=== PATIENT | female | born 1930 | race Caucasian/White ===

== ENCOUNTER 2017-08-04 20:40 | Inpatient (IN) ==
[2017-08-04] MEDS ORDERED: Acetaminophen 325 MG TABLET PO ONE (21:34)
--- NOTE | 2017-08-04 21:41 | Emergency Department Note ---
Disposition Clinical Impression: Supratherapeutic INR, Hyperkalemia Fall Qualifiers: Encounter type: initial encounter Qualified Code(s): W19.XXXA - Unspecified fall, initial encounter Acute renal failure Qualifiers: Acute renal failure type: unspecified Qualified Code(s): N17.9 - Acute kidney failure, unspecified UTI (urinary tract infection) Qualifiers: Urinary tract infection type: site unspecified Hematuria presence: without hematuria Qualified Code(s): N39.0 - Urinary tract infection, site not specified Disposition: Admitted As Inpatient Condition: Good Time of Disposition: 23:14 Fall HPI - General Chief Complaint: ED Fall Stated Complaint: "Fell/Injured R Leg/On Blood Thinners" Time Seen by Provider: 08/04/17 21:05 Source: patient, family Limitations: altered mental status, age Nursing Notes Reviewed: Yes Vital Signs Reviewed: Yes - History of Present Illness HPI Narrative: This is an 86 year-old female with history of HTN, AF on Coumadin, and frequent UTIs. She presents after a fall. Patient says that she just slipped out of a chair yesterday, landing on her left side. Family isn't sure about the accuracy of her account, however. Patient denies any pain. Family notes that she has complained of pain to the left ankle and foot, as well as pain in her tailbone with sitting. They says that patient has been confused for the past few days, at times imagining that there were people in her apartment that weren't really there. They say that patient hasn't eaten or taken her medications today. Pt Subjective Complaint: fall Onset (ago): unknown (yesterday?) Fall From: chair Fall Witnessed: no Place Fall Occurred: home Loss of Consciousness: none Prolonged Down Time?: no Symptoms Prior to Fall: none Context: tripped/slipped Location of injury: back (tailbone) Location of injury - extremities: Right: ankle, foot Severity: moderate Quality: unable to describe Associated symptoms (after fall): Reports: unable to walk (?). Denies: headache , neck pain, numbness, weakness, chest pain, shortness of breath, abdominal pain - Related Data Home Medications Medication Instructions Recorded Confirmed Digoxin [Lanoxin] 0.125 mg PO DAILY 08/05/17 08/05/17 Ergocalciferol (VITAMIN D2) 50,000 unit PO MOFR 08/05/17 08/05/17 [Drisdol] Lisinopril [Zestril] 10 mg PO DAILY 08/05/17 08/05/17 Metoprolol Succinate [Toprol Xl] 100 mg PO DAILY 08/05/17 08/05/17 Warfarin Sodium [Warfarin Sodium] 2.5 mg PO MOTUTHFRSA 08/05/17 08/05/17 Warfarin [Coumadin] 5 mg PO SUWE 08/05/17 08/05/17 Allergies Allergy/AdvReac Type Severity Reaction Status Date / Time No Known Allergies Allergy Verified 08/05/17 08:57 Limitations: ROS unobtainable due to patients medical condition Constitutional: Denies: fever Respiratory: Denies: dyspnea Gastrointestinal: Denies: abdominal pain Musculoskeletal: Reports: arthralgia (right ankle, foot). Denies: back pain, neck pain Neurological: Denies: headache, weakness, numbness Fall PMH - Past Medical History Medical history: Reports: atrial fibrillation, hypertension, other Psychiatric history: Reports: no psych history - Social History Smoking Status: Never smoker Alcohol use: Reports: none Drug use: Reports: none Physical Exam - General Limitations: no limitations General appearance: alert, cachectic - Head Head exam: atraumatic, normocephalic - Eye Eye exam: Present: normal appearance - Neck Neck exam: Present: normal inspection. Absent: tenderness - Respiratory Respiratory exam: Present: normal lung sounds bilaterally. Absent: respiratory distress - Cardiovascular Cardiovascular exam: Present: regular rate, irregular rhythm - Abdominal Exam Abdominal exam: Present: soft, Non-Tender. Absent: distention, guarding, rebound, rigidity - Extremities Exam Extremities exam: Present: other (swelling of right ankle, maximal over lateral malleolus; no pain on ROM of knees, hips, or upper extremities) - Back Exam Back exam: Present: normal inspection. Absent: tenderness - Neurological Exam Neurological exam: Present: alert, CN II-XII intact. Absent: motor sensory deficit - Psychiatric Psychiatric exam: Present: normal affect, normal mood - Skin Skin exam: Present: warm, dry, intact Course - Reevaluation(s) Reevaluation #1: Updated patient and family on test results, plans for admission. Time: 23:30 - Consultations Consultation #1: Reviewed case with Dr. Iverson, and he has accepted patient for admission. Time: 23:44 Vital Signs Temperature 97.6 F 08/04/17 20:42 Pulse Rate 0 08/04/17 20:42 Respiratory Rate 18 08/04/17 20:42 Blood Pressure 145/65 08/04/17 20:42 O2 Sat by Pulse Oximetry 0 08/04/17 20:42 Temperature 97.3 F L 08/06/17 19:00 Pulse Rate 114 08/06/17 20:00 Respiratory Rate 16 08/06/17 20:00 Blood Pressure 116/57 08/06/17 20:00 O2 Sat by Pulse Oximetry 96 08/06/17 20:00 Oxygen Delivery Oxygen Delivery Room Air Fall - Lab Data Lab results reviewed: Yes I reviewed the patient's lab results. Result diagrams: 08/06/17 03:20 08/06/17 03:20 Lab Results 08/04/17 08/04/17 08/04/17 Range/Units 21:45 21:45 21:45 WBC 12.3 H (4.3-11.1) K/mcL RBC 4.71 (3.82-4.97) M/mcL Hgb 13.6 (11.5-15.4) g/dL Hct 39.9 (35.3-44.9) % MCV 84.7 (83.0-100.0) fL MCH 28.9 (28.0-33.3) pg MCHC 34.1 (31.6-35.5) g/dL RDW 14.3 (11.5-14.5) % Plt Count 436 H (140-400) K/mcL MPV 8.8 L (9.4-12.4) fL Immature Gran % 0.7 (0-4) % Seg Neutrophils % 86.1 % Lymphocytes % 5.4 % Monocytes % 7.6 % Eosinophils % 0.0 % Basophils % 0.2 % Neutrophils # 10.6 H (1.6-8.9) K/mcL Lymphocytes # 0.7 (0.6-4.6) K/mcL Monocytes # 0.9 (0.0-1.3) K/mcL Eosinophils # 0.0 (0.0-0.6) K/mcL Basophils # 0.0 (0.0-0.2) K/mcL PT 167.9 H* (9.4-12.1) Seconds INR 14.7 H* APTT 66.3 H (26.0-36.0) Seconds Sodium 128 L (136-145) mEq/L Potassium 5.9 H (3.5-5.1) mEq/L Chloride 98 (98-107) mEq/L Carbon Dioxide 20 L (23-29) mEq/L BUN 54 H (8-23) mg/dL Creatinine 1.93 H (0.60-1.20) mg/dL Est GFR ( Amer) 30 L (> 60) Est GFR (Non-Af Amer) 25 L (> 60) BUN/Creatinine Ratio 28 H (6-26) Glucose 128 H (70-105) mg/dL POC Glucose (70-99) mg/dL Calculated Osmolality 282 (280-300) Lactic Acid (0.5-2.2) mmol/L Calcium 9.3 (8.6-10.3) mg/dL Total Bilirubin 1.2 H (0.3-1.0) mg/dL AST 13 (13-39) Units/L ALT 11 (7-52) Units/L Alkaline Phosphatase 90 (34-104) Units/L Creatine Kinase 28 L (30-223) Units/L Troponin I 0.03 (< 0.04) ng/mL Serum Total Protein 7.7 (6.4-8.9) g/dL Albumin 3.4 L (3.5-5.7) g/dL Globulin 4.3 H (2.4-3.5) g/dL Albumin/Globulin Ratio 0.8 L (1.1-2.2) Urine Color (Yellow) Urine Clarity (Clear) Urine pH (5.0-8.0) pH Units Ur Specific [place] (1.010-1.025) Urine Protein (Neg-Trace) mg/dL Urine Glucose (UA) (Normal) mg/dL Urine Ketones (Negative) mg/dL Urine Blood (Negative) Urine Nitrite (Negative) Urine Bilirubin (Negative) Urine Urobilinogen (Normal) mg/dL Ur Leukocyte Esterase (Negative) Urine Microscopic RBC (0-3) per hpf Urine Microscopic WBC (0-3) per hpf Ur Squamous Epith Cells (None-Few) per lpf Urine Bacteria (None-Few) per hpf Hyaline Casts Ur Culture Indicated? (NO) Digoxin 2.4 H (0.8-2.0) ng/mL Blood Type Antibody Screen 08/04/17 08/04/17 08/05/17 Range/Units 21:45 22:36 03:11 WBC (4.3-11.1) K/mcL RBC (3.82-4.97) M/mcL Hgb (11.5-15.4) g/dL Hct (35.3-44.9) % MCV (83.0-100.0) fL MCH (28.0-33.3) pg MCHC (31.6-35.5) g/dL RDW (11.5-14.5) % Plt Count (140-400) K/mcL MPV (9.4-12.4) fL Immature Gran % (0-4) % Seg Neutrophils % % Lymphocytes % % Monocytes % % Eosinophils % % Basophils % % Neutrophils # (1.6-8.9) K/mcL Lymphocytes # (0.6-4.6) K/mcL Monocytes # (0.0-1.3) K/mcL Eosinophils # (0.0-0.6) K/mcL Basophils # (0.0-0.2) K/mcL PT 213.4 H* (9.4-12.1) Seconds INR 18.6 H* APTT 86.2 H (26.0-36.0) Seconds Sodium (136-145) mEq/L Potassium (3.5-5.1) mEq/L Chloride (98-107) mEq/L Carbon Dioxide (23-29) mEq/L BUN (8-23) mg/dL Creatinine (0.60-1.20) mg/dL Est GFR ( Amer) (> 60) Est GFR (Non-Af Amer) (> 60) BUN/Creatinine Ratio (6-26) Glucose (70-105) mg/dL POC Glucose (70-99) mg/dL Calculated Osmolality (280-300) Lactic Acid 2.3 H (0.5-2.2) mmol/L Calcium (8.6-10.3) mg/dL Total Bilirubin (0.3-1.0) mg/dL AST (13-39) Units/L ALT (7-52) Units/L Alkaline Phosphatase (34-104) Units/L Creatine Kinase (30-223) Units/L Troponin I (< 0.04) ng/mL Serum Total Protein (6.4-8.9) g/dL Albumin (3.5-5.7) g/dL Globulin (2.4-3.5) g/dL Albumin/Globulin Ratio (1.1-2.2) Urine Color Yellow (Yellow) Urine Clarity Turbid A (Clear) Urine pH 7.0 (5.0-8.0) pH Units Ur Specific [place] 1.011 (1.010-1.025) Urine Protein 100 H (Neg-Trace) mg/dL Urine Glucose (UA) Normal (Normal) mg/dL Urine Ketones Negative (Negative) mg/dL Urine Blood Large H (Negative) Urine Nitrite Negative (Negative) Urine Bilirubin Negative (Negative) Urine Urobilinogen Normal (Normal) mg/dL Ur Leukocyte Esterase Large H (Negative) Urine Microscopic RBC TNTC H (0-3) per hpf Urine Microscopic WBC TNTC H (0-3) per hpf Ur Squamous Epith Cells Many H (None-Few) per lpf Urine Bacteria Many H (None-Few) per hpf Hyaline Casts Test Not Performed Ur Culture Indicated? NO. A (NO) Digoxin (0.8-2.0) ng/mL Blood Type Antibody Screen 08/05/17 08/05/17 08/05/17 Range/Units 03:11 03:11 03:11 WBC 13.5 H (4.3-11.1) K/mcL RBC 4.10 (3.82-4.97) M/mcL Hgb 11.7 D (11.5-15.4) g/dL Hct 34.6 L (35.3-44.9) % MCV 84.4 (83.0-100.0) fL MCH 28.5 (28.0-33.3) pg MCHC 33.8 (31.6-35.5) g/dL RDW 14.5 (11.5-14.5) % Plt Count 345 (140-400) K/mcL MPV 8.8 L (9.4-12.4) fL Immature Gran % (0-4) % Seg Neutrophils % % Lymphocytes % % Monocytes % % Eosinophils % % Basophils % % Neutrophils # (1.6-8.9) K/mcL Lymphocytes # (0.6-4.6) K/mcL Monocytes # (0.0-1.3) K/mcL Eosinophils # (0.0-0.6) K/mcL Basophils # (0.0-0.2) K/mcL PT (9.4-12.1) Seconds INR APTT (26.0-36.0) Seconds Sodium (136-145) mEq/L Potassium (3.5-5.1) mEq/L Chloride (98-107) mEq/L Carbon Dioxide (23-29) mEq/L BUN (8-23) mg/dL Creatinine (0.60-1.20) mg/dL Est GFR ( Amer) (> 60) Est GFR (Non-Af Amer) (> 60) BUN/Creatinine Ratio (6-26) Glucose (70-105) mg/dL POC Glucose (70-99) mg/dL Calculated Osmolality (280-300) Lactic Acid 1.3 (0.5-2.2) mmol/L Calcium (8.6-10.3) mg/dL Total Bilirubin (0.3-1.0) mg/dL AST (13-39) Units/L ALT (7-52) Units/L Alkaline Phosphatase (34-104) Units/L Creatine Kinase (30-223) Units/L Troponin I (< 0.04) ng/mL Serum Total Protein (6.4-8.9) g/dL Albumin (3.5-5.7) g/dL Globulin (2.4-3.5) g/dL Albumin/Globulin Ratio (1.1-2.2) Urine Color (Yellow) Urine Clarity (Clear) Urine pH (5.0-8.0) pH Units Ur Specific [place] (1.010-1.025) Urine Protein (Neg-Trace) mg/dL Urine Glucose (UA) (Normal) mg/dL Urine Ketones (Negative) mg/dL Urine Blood (Negative) Urine Nitrite (Negative) Urine Bilirubin (Negative) Urine Urobilinogen (Normal) mg/dL Ur Leukocyte Esterase (Negative) Urine Microscopic RBC (0-3) per hpf Urine Microscopic WBC (0-3) per hpf Ur Squamous Epith Cells (None-Few) per lpf Urine Bacteria (None-Few) per hpf Hyaline Casts Ur Culture Indicated? (NO) Digoxin (0.8-2.0) ng/mL Blood Type B POSITIVE Antibody Screen NEGATIVE 08/05/17 08/05/17 Range/Units 03:11 05:19 WBC (4.3-11.1) K/mcL RBC (3.82-4.97) M/mcL Hgb (11.5-15.4) g/dL Hct (35.3-44.9) % MCV (83.0-100.0) fL MCH (28.0-33.3) pg MCHC (31.6-35.5) g/dL RDW (11.5-14.5) % Plt Count (140-400) K/mcL MPV (9.4-12.4) fL Immature Gran % (0-4) % Seg Neutrophils % % Lymphocytes % % Monocytes % % Eosinophils % % Basophils % % Neutrophils # (1.6-8.9) K/mcL Lymphocytes # (0.6-4.6) K/mcL Monocytes # (0.0-1.3) K/mcL Eosinophils # (0.0-0.6) K/mcL Basophils # (0.0-0.2) K/mcL PT (9.4-12.1) Seconds INR APTT (26.0-36.0) Seconds Sodium 132 L (136-145) mEq/L Potassium 4.6 (3.5-5.1) mEq/L Chloride 109 H (98-107) mEq/L Carbon Dioxide 16 L (23-29) mEq/L BUN 52 H (8-23) mg/dL Creatinine 1.72 H (0.60-1.20) mg/dL Est GFR ( Amer) 34 L (> 60) Est GFR (Non-Af Amer) 28 L (> 60) BUN/Creatinine Ratio 30 H (6-26) Glucose 115 H (70-105) mg/dL POC Glucose 115 H (70-99) mg/dL Calculated Osmolality 289 (280-300) Lactic Acid (0.5-2.2) mmol/L Calcium 7.6 L (8.6-10.3) mg/dL Total Bilirubin (0.3-1.0) mg/dL AST (13-39) Units/L ALT (7-52) Units/L Alkaline Phosphatase (34-104) Units/L Creatine Kinase (30-223) Units/L Troponin I (< 0.04) ng/mL Serum Total Protein (6.4-8.9) g/dL Albumin (3.5-5.7) g/dL Globulin (2.4-3.5) g/dL Albumin/Globulin Ratio (1.1-2.2) Urine Color (Yellow) Urine Clarity (Clear) Urine pH (5.0-8.0) pH Units Ur Specific [place] (1.010-1.025) Urine Protein (Neg-Trace) mg/dL Urine Glucose (UA) (Normal) mg/dL Urine Ketones (Negative) mg/dL Urine Blood (Negative) Urine Nitrite (Negative) Urine Bilirubin (Negative) Urine Urobilinogen (Normal) mg/dL Ur Leukocyte Esterase (Negative) Urine Microscopic RBC (0-3) per hpf Urine Microscopic WBC (0-3) per hpf Ur Squamous Epith Cells (None-Few) per lpf Urine Bacteria (None-Few) per hpf Hyaline Casts Ur Culture Indicated? (NO) Digoxin (0.8-2.0) ng/mL Blood Type Antibody Screen - Radiology Data Radiology results reviewed: Yes I reviewed the patient's radiology results. CT/CT head/brain wo con IMPRESSION: 1. No acute intracranial abnormality. 2. Diffuse parenchymal volume loss with mild chronic white matter microvascular ischemic changes. 3. 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 CT/CT cervical spine wo con IMPRESSION: No acute abnormality of the cervical spine. XR/XR chest 1V portable IMPRESSION: Diffusely decreased bone mineral density. Age-indeterminate compression fracture of L1. Recommend CT for further evaluation. Limited sacrum and coccyx. XR/XR foot 3V RT IMPRESSION: Diffusely decreased bone mineral density. Age-indeterminate compression fracture of L1. Recommend CT for further evaluation. Limited sacrum and coccyx. XR/XR ankle limited RT IMPRESSION: Diffusely decreased bone mineral density. Age-indeterminate compression fracture of L1. Recommend CT for further evaluation. Limited sacrum and coccyx. XR/XR lumbar spine 2-3V IMPRESSION: Diffusely decreased bone mineral density. Age-indeterminate compression fracture of L1. Recommend CT for further evaluation. Limited sacrum and coccyx. - EKG Data EKG attestation: Yes I reviewed and interpreted this EKG. Rate: tachycardia Rhythm: A.Fib T wave inversions noted in: II, III, aVF, v3, v4, v5, v6 When compared to previous EKG there are: previous EKG unavailable Interpretation: nonspecific ST-T wave changes
[2017-08-04 22:08] LABS: Basophils % 0.2 %; Hematocrit 39.9 % (35.3-44.9); Hemoglobin 13.6 g/dL (11.5-15.4); Immature Granulocytes % 0.7 % (0-4); Lymphocytes # 0.7 K/mcL (0.6-4.6); Lymphocytes % 5.4 %; Mean Corpuscular HGB Conc 34.1 g/dL (31.6-35.5); Mean Corpuscular Hemoglobin 28.9 pg (28.0-33.3); Mean Corpuscular Volume 84.7 fL (83.0-100.0); Mean Platelet Volume 8.8 fL (9.4-12.4); Monocytes # 0.9 K/mcL (0.0-1.3); Monocytes % 7.6 %; Neutrophils # 10.6 K/mcL (1.6-8.9); Platelet Count 436 K/mcL (140-400); Red Blood Count 4.71 M/mcL (3.82-4.97); Red Cell Distribution Width 14.3 % (11.5-14.5); Segmented Neutrophils % 86.1 %
[2017-08-04 22:18] LABS: Activated Partial Thrombo Time 66.3 Seconds (26.0-36.0)
[2017-08-04 22:25] LABS: Prothrombin Time 167.9 Seconds (9.4-12.1)
[2017-08-04 22:26] LABS: Albumin 3.4 g/dL (3.5-5.7); Albumin/Globulin Ratio 0.8 (1.1-2.2); Bilirubin,Total 1.2 mg/dL (0.3-1.0); Calcium 9.3 mg/dL (8.6-10.3); Digoxin 2.4 ng/mL (0.8-2.0); Globulin 4.3 g/dL (2.4-3.5); INR 14.7; Potassium 5.9 mEq/L (3.5-5.1); Total Protein 7.7 g/dL (6.4-8.9); Troponin I 0.03 ng/mL (< 0.04)
[2017-08-04] MEDS ORDERED: 0.9 % Sodium Chloride 500 ML IVC ONE ×2 (22:26→22:42)
[2017-08-04 22:43] LABS: Bilirubin,Urine Negative (Negative); Blood,Urine Large (Negative); Clarity,Urine Turbid (Clear); Color,Urine Yellow (Yellow); Glucose,Urine (UA) Normal (Normal); Ketones,Urine Negative (Negative); Leukocyte Esterase,Urine Large (Negative); Nitrite,Urine Negative (Negative); Protein,Urine 100 mg/dL (Neg-Trace); Specific Gravity,Urine 1.011 (1.010-1.025); Urobilinogen,Urine Normal (Normal)
[2017-08-04 22:46] LABS: Bacteria,Urine Many per hpf (None-Few); RBC,Urine TNTC per hpf (0-3); Squamous Epithelial Cell,Urine Many per lpf (None-Few); WBC,Urine TNTC per hpf (0-3)
[2017-08-04] MEDS ORDERED: cefTRIAXone 2,000 MG in Water for inj. (sterile) 20 ML 20 ML IVP ONE (23:13)
[2017-08-04] MEDS ORDERED: *HR* Phytonadione 10 MG/ML AMPUL SQ ONE (23:41)
[2017-08-05] MEDS ORDERED: 0.9 % Sodium Chloride 1,000 ML IVC ONE (01:51)
[2017-08-05] MEDS ORDERED: 0.9 % Sodium Chloride 1,000 ML ONE (01:52)
[2017-08-05] MEDS ORDERED: Famotidine 20 MG/2 ML VIAL IVP ONE ×2 (02:56→05:23)
--- NOTE | 2017-08-05 03:06 | Internal Med History&Physical ---
Date of Encounter: 08/05/17 Time of Encounter: 03:00 Internal Medicine - H&P: HPI Chief complaint: confusion and fall Admitted From: Home Plans for Post Hospital Care: Home (assisted living) History of present illness: Ms. Tobar is a 86 year old female with a past medical history of A. fib on Coumadin, hypertension, and CHF who presented to the ED for confusion. Patient lives in assisted living facility and her daughter and son call her twice a day. The last couple days she has been progressively worsening and confusion and increased incontinence. Today she was not answering her phone so her daughter came this afternoon and she found her sitting on the side of her bed crying as she was unable to put any weight on her right foot due to pain. She states that a couple days ago she fell but did not hit her head or lose consciousness. Her daughter states that she has been drinking less and is started drinking coffee because of worsening incontinence over the last couple months and has been embarrassed by it patient has a history of UTIs and in her mid 60s was self cathetering but does not currently see a urologist. Concerning patient's Coumadin, patient takes her Coumadin by herself and her INR is checked every 3 weeks. Patient's daughter states that she is very compliant with keeping the diet and has been therapeutic until today. Her last check was 3 weeks ago and she was due for an INR check tomorrow. Patient is on Coumadin for A. fib and sees Dr. Tian. Upon arrival to the ED, patient's vitals were within normal limits except for a slightly elevated blood pressure of 145/65. CBC and BMP showed a white blood cell count 12.3 platelet count 436, INR 14.7, sodium 128, potassium 5.9, CO2 20 , creatinine 1.930, lactic acid 2.3, and digoxin level elevated at 2.4 UA showed proteinuria and hematuria. Blood cultures were obtained in the ED. Cervical CT, head CT, Chest x-ray and right foot and ankle x-ray shows no acute process. Lumbar spine shows an age indeterminant inferior and plate fracture of L1. Patient was given 2L, Kayexalate, Vitamin K, and Rocephin in the ED. Patient was admitted to the floor for sepsis secondary to UTI and dehydration. Past Med Surg Social Fam HX - Past Medical History Medical history: atrial fibrillation, hypertension, other Psychiatric history: no psych history - Past Surgical History Additional surgical history: bladder repair. - Social History Smoking Status: Never smoker Smokeless Tobacco Status: No Alcohol use: none Drug use: none Internal Medicine - H&P: Meds Digoxin [Lanoxin] 0.125 mg PO DAILY 08/05/17 [History] Ergocalciferol (VITAMIN D2) [Drisdol] 100,000 unit PO QWEEK 08/05/17 [History] Lisinopril [Zestril] 10 mg PO DAILY 08/05/17 [History] Metoprolol Succinate [Toprol Xl] 100 mg PO DAILY 08/05/17 [History] Warfarin [Coumadin] 2.5 mg PO DAILY 08/05/17 [History] 3 Allergy/AdvReac Type Severity Reaction Status Date / Time No Known Allergies Allergy Verified 08/04/17 20:42 All Systems PM: A 10-system review of systems was performed and is negative for pertinent findings except as documented above in the HPI. - Constitutional Vitals: Temp Pulse Resp BP Pulse Ox 97.8 F 80 18 87/51 96 08/05/17 01:47 08/05/17 01:47 08/05/17 01:47 08/05/17 02:21 08/05/17 01:47 Exam: Constitutional: Alert, in no acute distress, Head: periorbital swelling Normocephalic, atraumatic Heart: irregular rhythm, rate regular, no murmurs Lungs: Clear to auscultation, no wheezes, rales, or rhonchi Abdomen: Soft, nondistended, nontender,, no guarding or rigidity. Extremities: Right ankle with swelling and tenderness around the lateral malleoli, No pitting edema, No clubbing, radial pulse +2/4, capillary refill < 2sec. Skin: red, blotchy, blanchable rash diffusely most likely, sparing palms and soles, Skin warm and dry, no lesions, no jaundice Neurologic: Cranial nerves II through XII grossly intact, strength 5/5 in all extremities Psych: Cooperative with exam, good eye contact, cognitive function intact, speech clear, thought process logical, and goal directed Internal Med - H&P Results - Labs CBC & Chem 7: 08/05/17 03:11 08/05/17 03:11 - Assessment and plan (1) Sepsis Current Visit: Yes Status: Acute Assessment and plan: Elevated WBC, hypotensive, elevated lactic acid, + UTI. Patient has recieved a total of 2.5L bolus. BP currently stable. Repeat lactic acid wnl. Rocephin given in the ED. Patient still had low normal blood pressures after fluid resuscitation and was transferred to the ICU in case of need for central line and pressors. Plan: -urine culture pending - vitals [id number] - antibiotics: Zosyn and Vanco Qualifiers: Sepsis type: sepsis due to unspecified organism Qualified Code(s): A41.9 - Sepsis, unspecified organism (2) Fall Current Visit: Yes Status: Acute Assessment and plan: Unsure if etiology but patient states that she did not hit her head or LOC, possibly 2/2 to afib RVR or confusion from sepsis. Imaging studies were all negative for acute injuries. Right ankle is the other area that is causing pain. Plan: - Tylenol for pain control - paresh bandage on ankle for decreasing swelling Qualifiers: Encounter type: initial encounter Qualified Code(s): W19.XXXA - Unspecified fall, initial encounter (3) Supratherapeutic INR Current Visit: Yes Status: Acute Assessment and plan: Unsure of etiology, possibly 2/2 patient's confusion and accidentally taking an extra couple of pills. Vitamin K given in the ED. Repeat INR even higher. Holding coumadin. Patient is currently not bleeding but low threshold for FFP. Hemoglobin has not changes significantly when excessive rehydration is taken into account. Will continue to monitor for bleeding. (4) Acute renal failure Current Visit: Yes Status: Acute Assessment and plan: MYRIAM most likely 2/2 dehydration and sepsis causing hyperperfusion dementia. Patient's creatinine initially was 1.93, improved mildly to 1.72 with IV hydration. Plan: - continue to monitor urine output - avoid nephrotoxins Qualifiers: Acute renal failure type: unspecified Qualified Code(s): N17.9 - Acute kidney failure, unspecified (5) Hyperkalemia Current Visit: Yes Status: Acute Assessment and plan: Resolved with Kayexalate. We will continue to monitor. (6) UTI (urinary tract infection) Current Visit: Yes Status: Acute Assessment and plan: UA is a dirty catch but patient is symptomatic with increased urinary incontinence and confusion and hx of frequent UTIs. Sent for culture. Plan: - Urine culture pending - broad-spectrum antibiotics until cultures result Qualifiers: Urinary tract infection type: site unspecified Hematuria presence: without hematuria Qualified Code(s): N39.0 - Urinary tract infection, site not specified (7) Allergic reaction Current Visit: Yes Status: Acute Assessment and plan: Allergic reaction, unknown cause. Rash appeared after IV was placed but no medications had sariah administered. She ate no new foods, lotions, or detergents. Rash improved with Pepcid, unable to give Benadryl as she was hypotensive. Qualifiers: Encounter type: initial encounter Qualified Code(s): T78.40XA - Allergy, unspecified, initial encounter (8) Elevated digoxin level Current Visit: Yes Status: Acute Assessment and plan: Digoxin level = 2.3. Currently rate controlled. Will hold digoxin for now. (9) DVT prophylaxis Current Visit: Yes Status: Acute Assessment and plan: INR supratherapeutic, Coumadin on hold - Time Spent With Patient Total time spent is greater than 50% in coordination of care (as documented) at patient's floor/unit and/or counseling patient:
[2017-08-05 03:24] LABS: Hematocrit 34.6 % (35.3-44.9); Mean Corpuscular HGB Conc 33.8 g/dL (31.6-35.5); Mean Corpuscular Hemoglobin 28.5 pg (28.0-33.3); Mean Corpuscular Volume 84.4 fL (83.0-100.0); Mean Platelet Volume 8.8 fL (9.4-12.4); Platelet Count 345 K/mcL (140-400); Red Cell Distribution Width 14.5 % (11.5-14.5)
[2017-08-05 03:25] LABS: Hemoglobin 11.7 g/dL (11.5-15.4)
[2017-08-05 03:36] LABS: Activated Partial Thrombo Time 86.2 Seconds (26.0-36.0)
[2017-08-05 03:43] LABS: Calcium 7.6 mg/dL (8.6-10.3); Potassium 4.6 mEq/L (3.5-5.1)
[2017-08-05] MEDS ORDERED: Naloxone 0.4 MG/ML INJ IVP PRN ×2 (03:50→05:23)
[2017-08-05] MEDS ORDERED: Acetaminophen 325 MG TABLET PO PRN (03:50)
[2017-08-05 04:13] LABS: Prothrombin Time 213.4 Seconds (9.4-12.1)
[2017-08-05 04:14] LABS: INR 18.6
[2017-08-05] MEDS ORDERED: 0.9 % Sodium Chloride 1,000 ML IVC SCH (04:15)
[2017-08-05] MEDS ORDERED: Piperacillin/Tazobactam 3.375 GM in 0.9 % Sodium Chloride Mini Bag 100 ML IVPB SCH (06:00)
[2017-08-05] MEDS: Acetaminophen 325 MG TABLET PO PRN ×2 (06:18→18:32)
[2017-08-05] MEDS: Piperacillin/Tazobactam 3.375 GM in 0.9 % Sodium Chloride Mini Bag 100 ML IVPB SCH ×2 (06:19→17:06)
[2017-08-05] MEDS ORDERED: *HR* Phytonadione 10 MG/ML AMPUL SQ ONE (08:46)
[2017-08-05] MEDS ORDERED: *HR* Digoxin 0.125 MG TABLET PO SCH (09:00)
[2017-08-05] MEDS: Ringers Solution, Lactated 1,000 ML IVC SCH ×2 (09:21→23:15)
[2017-08-05] MEDS ORDERED: 0.9 % Sodium Chloride 500 ML IVC ONE (10:57)
[2017-08-05] MEDS ORDERED: 0.9 % Sodium Chloride 500 ML ONE (11:01)
--- NOTE | 2017-08-05 17:14 | Event Note ---
Date of Encounter: 08/05/17 Time of Encounter: 09:00 86-year-old female with history of CHF, hypertension, atrial fibrillation, brought in by family with altered mental status. Patient was noted to have sepsis probably secondary to UTI. Seen and examined at bedside. Noted to be alert and oriented. Reports right ankle pain due to recent fall. No chest pain, shortness of breath, palpitations. Chest- S1, S2 heard, irregular Lungs with clear to auscultation B/L Acute encephalopathy- resolved; likely metabolic/septic; Severe Sepsis due to UTI- patient presented with mild leukocytosis, renal dysfunction, tachycardia and encephalopathy and mild lactic acidosis. Chest x- ray shows no pneumonia. Urinalysis shows large leukocyte esterase, too numerous to count RBC and WBC, pending urine and blood cultures. Started on broad-spectrum IV antibiotics-vancomycin and Zosyn. Blood pressure responding to IV hydration. Lactic acid currently normalized. Supratherapeutic INR-patient might have taken multiple extra doses of Coumadin. Presented with INR of 14.7, 18.6 today. Received 5 mg vitamin K the emergency room, will give 2.5 mg subcutaneous vitamin K today. Monitor INR closely. No signs of active bleeding at this time. Acute kidney injury-Baseline serum creatinine noted to be normal. Presented with creatinine of 1.93, improved to 1.72 with IV hydration. Avoid nephrotoxic agents.
--- NOTE | 2017-08-05 17:48 | Electrocardiograph Report ---
[address] [place], [place] [address] Test Date: 2017-08-04 Pat Name: Radha Tobar Department: 103 Room: [facility] Gender: F [employer] Specialists: PATRICIA : [id number] Requested By: Radha Dunlap Order Number: [id number] Reading MD: Arash Stephens Measurements Intervals Fidelity Rate: 112 P: ID: 0 QRS: 70 QRSD: 81 T: 267 QT: 256 QTc: 323 Interpretive Statements ATRIAL FIBRILLATION WITH RAPID VENTRICULAR RESPONSE DIFFUSE ENDOCARDIAL ISCHEMIA, MAYBE RELATED TO RATE Electronically Signed On 08-05-2017 17:46:20 EDT by Arash Stephens
--- NOTE | 2017-08-05 19:34 | Event Note ---
Date of Encounter: 08/05/17 Time of Encounter: 02:00 I was present with resident during the history and exam. I discussed the case with the resident and agree with the findings and plan as documented in the residents note. Patient had supratherapeutic INR and a low blood pressure, but no signs of bleeding. Elected to transfer the patient to the ICU for closer monitoring. Patient also appeared to have an allergic reaction from an unknown source that was first noted before any meds or procedures were done in the ER. This resolved with application of ranitidine. Continue to monitor INR. Overall patient condition has improved.
[2017-08-06 03:37] LABS: Basophils % 0.2 %; Eosinophils % 0.2 %; Hematocrit 30.3 % (35.3-44.9); Hemoglobin 10.4 g/dL (11.5-15.4); Immature Granulocytes % 0.6 % (0-4); Lymphocytes # 1.1 K/mcL (0.6-4.6); Lymphocytes % 13.1 %; Mean Corpuscular HGB Conc 34.3 g/dL (31.6-35.5); Mean Corpuscular Hemoglobin 28.7 pg (28.0-33.3); Mean Corpuscular Volume 83.7 fL (83.0-100.0); Mean Platelet Volume 8.9 fL (9.4-12.4); Monocytes # 0.6 K/mcL (0.0-1.3); Monocytes % 6.8 %; Neutrophils # 6.5 K/mcL (1.6-8.9); Platelet Count 308 K/mcL (140-400); Red Blood Count 3.62 M/mcL (3.82-4.97); Red Cell Distribution Width 14.6 % (11.5-14.5); Segmented Neutrophils % 79.1 %
[2017-08-06 03:46] LABS: INR 8.3; Prothrombin Time 93.7 Seconds (9.4-12.1)
[2017-08-06 03:55] LABS: BUN/Creatinine Ratio 37 (6-26); Blood Urea Nitrogen 36 mg/dL (8-23); Calcium 7.8 mg/dL (8.6-10.3); Carbon Dioxide 20 mEq/L (23-29); Chloride 109 mEq/L (98-107); Glucose 97 mg/dL (70-105); Magnesium 1.8 mg/dL (1.6-2.6); Osmolality,Calculated 288 (280-300); Potassium 4.5 mEq/L (3.5-5.1); Sodium 135 mEq/L (136-145); eGFR For African Americans > 60 (> 60); eGFR For Non-African Americans 54 (> 60)
[2017-08-06] MEDS: Piperacillin/Tazobactam 3.375 GM in 0.9 % Sodium Chloride Mini Bag 100 ML IVPB SCH ×2 (05:19→18:28)
[2017-08-06] MEDS ORDERED: Ringers Solution, Lactated 500 ML IVC ONE (09:15)
--- NOTE | 2017-08-06 16:41 | Internal Med Progress Note ---
Date of Encounter: 08/06/17 Time of Encounter: 09:00 - Assessment and plan (1) Fall Current Visit: Yes Status: Acute Assessment and plan: Frequent falls due to generalized weakness, likely due to underlying infection. Physical and occupational therapy evaluation pending. Continue current management. Qualifiers: Encounter type: initial encounter Qualified Code(s): W19.XXXA - Unspecified fall, initial encounter (2) Supratherapeutic INR Current Visit: Yes Status: Acute Assessment and plan: Likely due to accidental overdose in. Received 7.5 mg vitamin K so far. INR improved to 8.3 today. Continue to monitor closely. Hold Coumadin for now. (3) Acute renal failure Current Visit: Yes Status: Acute Assessment and plan: Likely prerenal, due to dehydration and UTI. Serum creatinine improved to 0.98 , continue IV hydration and monitor urine output. Qualifiers: Acute renal failure type: unspecified Qualified Code(s): N17.9 - Acute kidney failure, unspecified (4) Hyperkalemia Current Visit: Yes Status: Resolved (5) UTI (urinary tract infection) Current Visit: Yes Status: Acute Assessment and plan: Urine culture grows gram-negative rods and gram-positive cocci. Continue IV vancomycin and Zosyn for now. Qualifiers: Urinary tract infection type: site unspecified Hematuria presence: without hematuria Qualified Code(s): N39.0 - Urinary tract infection, site not specified (6) Sepsis Current Visit: Yes Status: Acute Assessment and plan: Severe sepsis likely due to UTI. Patient presented with mild leukocytosis, renal dysfunction, tachycardia and encephalopathy and mild lactic acidosis. Chest x-ray shows no pneumonia. Lactic acid normalized, blood pressure improving. Continue IV antibiotics and follow up final cultures. Qualifiers: Sepsis type: sepsis due to unspecified organism Qualified Code(s): A41.9 - Sepsis, unspecified organism (7) DVT prophylaxis Current Visit: Yes Status: Acute (8) Atrial fibrillation Current Visit: Yes Status: Chronic Assessment and plan: Continue telemetry monitoring. Currently rate controlled but does have mild tachycardia intermittently. Will restart low-dose metoprolol as blood pressure is improving. Anticoagulation with Coumadin on hold due to supratherapeutic INR. Qualifiers: Atrial fibrillation type: chronic Qualified Code(s): I48.2 - Chronic atrial fibrillation (9) Essential hypertension Current Visit: Yes Status: Chronic Assessment and plan: Blood pressure slowly improving. Continue IV hydration for now. - Time Spent With Patient Total time spent is greater than 50% in coordination of care (as documented) at patient's floor/unit and/or counseling patient: - Subjective Interval history: Feels better except mild weakness; wonders why she is in the hospital; denies chest pain, shortness of breath, palpitations; declines rehab placement; - Constitutional Vitals: Temp Pulse Resp BP Pulse Ox 98.6 F 92 20 111/55 97 08/06/17 15:49 08/06/17 15:26 08/06/17 15:00 08/06/17 15:00 08/06/17 15:00 General appearance: Present: cachectic, A&O X 3, answers questions appropriately Exam: dry skin - Respiratory Respiratory exam: Present: CTAB. Absent: accessory muscle use, rales, rhonchi, wheezes - Cardiovascular Cardiovascular exam: Present: irregular rhythm, +S1, +S2. Absent: diastolic murmur, gallop, rubs, systolic murmur - GI/Abdominal GI/Abdominal exam: Present: normal bowel sounds, soft, no peritoneal signs. Absent: distended, tenderness - Extremities Exam Extremities exam: Present: full ROM, warm, radial pulses palpable and symmetrical. Absent: calf tenderness, cyanotic, pedal edema Additional comments: mild right ankle swelling, elastic bandage - Neurological Exam Neurological exam: Present: CN II-XII intact, oriented X3, no focal deficits. Absent: pronater drift, facial droop, speech deficit Internal Medicine: Result - Labs CBC & Chem 7: 08/06/17 03:20 08/06/17 03:20 Labs: Short CBC 08/06/17 Range/Units 03:20 WBC 8.3 (4.3-11.1) K/mcL Hgb 10.4 L (11.5-15.4) g/dL Hct 30.3 L (35.3-44.9) % Plt Count 308 (140-400) K/mcL Neutrophils # 6.5 (1.6-8.9) K/mcL BMP 08/06/17 03:20 Sodium 135 L Potassium 4.5 Chloride 109 H Carbon Dioxide 20 L BUN 36 H Creatinine 0.98 Glucose 97 Calcium 7.8 L - ABG Interpretation ABG results: PT/INR, D-dimer PT 93.7 Seconds (9.4-12.1) H* D 08/06/17 03:20 - VTE Reasons for not Prescribing Prophylaxis: Medical contraindication Consult Discharge Plan - Plan Referrals: Cristi Esposito MD [Primary Care Provider] -
[2017-08-06] MEDS ORDERED: Vancomycin 1 EACH in 0.9 % Sodium Chloride 250 ML IVPB SCH (17:00)
[2017-08-06] MEDS: Ringers Solution, Lactated 1,000 ML IVC SCH ×2 (20:56→20:59)
[2017-08-07 04:53] LABS: Prothrombin Time 22.4 Seconds (9.4-12.1)
[2017-08-07 05:02] LABS: BUN/Creatinine Ratio 24 (6-26); Blood Urea Nitrogen 16 mg/dL (8-23); Calcium 7.6 mg/dL (8.6-10.3); Carbon Dioxide 21 mEq/L (23-29); Chloride 107 mEq/L (98-107); Glucose 93 mg/dL (70-105); Osmolality,Calculated 277 (280-300); Potassium 4.1 mEq/L (3.5-5.1); Sodium 133 mEq/L (136-145); eGFR For African Americans > 60 (> 60); eGFR For Non-African Americans > 60 (> 60)
[2017-08-07] MEDS: Piperacillin/Tazobactam 3.375 GM in 0.9 % Sodium Chloride Mini Bag 100 ML IVPB SCH (06:26)
[2017-08-07] MEDS ORDERED: cefTRIAXone 2,000 MG in Water for inj. (sterile) 20 ML 20 ML IVP SCH (08:00)
[2017-08-07] MEDS ORDERED: Aminoglycoside Consult 1 EACH MC ONE (11:39)
--- NOTE | 2017-08-07 16:51 | Internal Med Progress Note ---
Date of Encounter: 08/07/17 Time of Encounter: 08:45 - Assessment and plan (1) Fall Current Visit: Yes Status: Acute Assessment and plan: Frequent falls due to generalized weakness, likely due to underlying infection. Physical and occupational therapy evaluation pending. Continue current management. Plan of care d/w daughter at bedside; requests [facility] referral, declines ECF placement at this time; will d/w CM; Qualifiers: Encounter type: initial encounter Qualified Code(s): W19.XXXA - Unspecified fall, initial encounter (2) Supratherapeutic INR Current Visit: Yes Status: Acute Assessment and plan: Likely due to accidental overdose in. Received 7.5 mg vitamin K. INR improved to 2 today. Will resume Coumadin. (3) Acute renal failure Current Visit: Yes Status: Resolved Assessment and plan: improved with IV hydration; likely prerenal and UTI; Qualifiers: Acute renal failure type: unspecified Qualified Code(s): N17.9 - Acute kidney failure, unspecified (4) Hyperkalemia Current Visit: Yes Status: Resolved (5) UTI (urinary tract infection) Current Visit: Yes Status: Acute Assessment and plan: Urine culture grows pansensitive Klebsiella oxytoca; No significant gram- positive cocci at this time. Change antibiotics to Rocephin and d/c Vancomycin; daughter concerned about frequent UTIs; patient does have incontinence; will refer to Urology as outpatient, encouraged adequate hydration; Qualifiers: Urinary tract infection type: site unspecified Hematuria presence: without hematuria Qualified Code(s): N39.0 - Urinary tract infection, site not specified (6) Sepsis Current Visit: Yes Status: Acute Assessment and plan: Severe sepsis likely due to UTI, now resolved. Patient presented with mild leukocytosis, renal dysfunction, tachycardia and encephalopathy and mild lactic acidosis. Chest x-ray shows no pneumonia. Lactic acid normalized, blood pressure improved. Continue IV antibiotics. Qualifiers: Sepsis type: sepsis due to unspecified organism Qualified Code(s): A41.9 - Sepsis, unspecified organism (7) DVT prophylaxis Current Visit: Yes Status: Acute (8) Atrial fibrillation Current Visit: Yes Status: Chronic Assessment and plan: Continue telemetry monitoring. Currently rate controlled . Continue metoprolol. Anticoagulation with Coumadin as above; Qualifiers: Atrial fibrillation type: chronic Qualified Code(s): I48.2 - Chronic atrial fibrillation (9) Essential hypertension Current Visit: Yes Status: Chronic Assessment and plan: Blood pressure normalized; will resume antihypertensives; - Time Spent With Patient Total time spent is greater than 50% in coordination of care (as documented) at patient's floor/unit and/or counseling patient: - Subjective Interval history: Feels better; reports constipation; no chest pain, shortness of breath; improved BP and HR; - Constitutional Vitals: Temp Pulse Resp BP Pulse Ox 97.5 F L 80 22 122/67 95 08/07/17 15:40 08/07/17 08:00 08/07/17 08:00 08/07/17 08:00 08/07/17 08:00 General appearance: Present: cachectic, A&O X 3, answers questions appropriately - Respiratory Respiratory exam: Present: CTAB. Absent: accessory muscle use, rales, rhonchi, wheezes - Cardiovascular Cardiovascular exam: Present: irregular rhythm, +S1, +S2. Absent: diastolic murmur, gallop, rubs, systolic murmur - GI/Abdominal GI/Abdominal exam: Present: normal bowel sounds, soft, no peritoneal signs. Absent: distended, tenderness Internal Medicine: Result - Labs CBC & Chem 7: 08/06/17 03:20 08/07/17 04:17 Labs: BMP 08/07/17 04:17 Sodium 133 L Potassium 4.1 Chloride 107 Carbon Dioxide 21 L BUN 16 Creatinine 0.66 Glucose 93 Calcium 7.6 L - ABG Interpretation ABG results: PT/INR, D-dimer PT 22.4 Seconds (9.4-12.1) H D 08/07/17 04:17 - VTE Reasons for not Prescribing Prophylaxis: Medical contraindication Consult Discharge Plan - Plan Referrals: Cristi Esposito MD [Primary Care Provider] -
[2017-08-07] MEDS ORDERED: Acetaminophen 325 MG TABLET PO PRN (17:28)
[2017-08-07] MEDS ORDERED: Naloxone 0.4 MG/ML INJ IVP PRN (17:28)
[2017-08-07] MEDS ORDERED: *HR* Warfarin 2.5 MG TABLET PO ONE (18:00)
[2017-08-07] MEDS ORDERED: Warfarin perPT PO PRN ×2 (18:00)
[2017-08-08 05:39] LABS: INR 1.7; Prothrombin Time 19.3 Seconds (9.4-12.1)
[2017-08-08] MEDS ORDERED: cefTRIAXone 2,000 MG in Water for inj. (sterile) 20 ML 20 ML IVP SCH (08:00)
--- NOTE | 2017-08-08 10:43 | Discharge Summary ---
- NOTES TO OUTPATIENT PROVIDER Notes to Outpatient Provider: UTI, sepsis, a.fib with RVR- improved; may need Urology outpatient evaluation for frequent UTIs;. Supratherapeutic INR, needs close INR monitoring; Orders not resulted at time of discharge: Pending orders 08/09/17 04:00 INR/PT [Prothrombin Time INR] [COAG] AM 0400 08/10/17 04:00 INR/PT [Prothrombin Time INR] [COAG] AM 0400 08/11/17 04:00 INR/PT [Prothrombin Time INR] [COAG] AM 0400 08/12/17 04:00 INR/PT [Prothrombin Time INR] [COAG] AM 0400 Date of Encounter: 08/08/17 Time of Encounter: 10:40 - Discharge Diagnosis (1) Fall Priority: Primary Status: Acute Qualifiers: Encounter type: initial encounter Qualified Code(s): W19.XXXA - Unspecified fall, initial encounter (2) Supratherapeutic INR Priority: Primary Status: Acute (3) Acute renal failure Priority: Primary Status: Resolved Qualifiers: Acute renal failure type: unspecified Qualified Code(s): N17.9 - Acute kidney failure, unspecified (4) Hyperkalemia Priority: Primary Status: Resolved (5) UTI (urinary tract infection) Priority: Primary Status: Acute Qualifiers: Urinary tract infection type: site unspecified Hematuria presence: without hematuria Qualified Code(s): N39.0 - Urinary tract infection, site not specified (6) Sepsis Priority: Primary Status: Acute Qualifiers: Sepsis type: sepsis due to unspecified organism Qualified Code(s): A41.9 - Sepsis, unspecified organism (7) Atrial fibrillation Priority: Secondary Status: Chronic Qualifiers: Atrial fibrillation type: chronic Qualified Code(s): I48.2 - Chronic atrial fibrillation (8) Essential hypertension Priority: Secondary Status: Chronic Hospital course: Ms. Tobar is a 86 year old female with the above medical problems who was brought in by family with complaints of altered mental status and generalized weakness. She was noted to be in severe sepsis likely due to UTI. She was started on broad-spectrum IV antibiotics-vancomycin and Zosyn. She was also noted to have acute kidney injury, likely prerenal, serum creatinine eventually normalized with IV hydration. She has history of atrial fibrillation, initially had rapid ventricular response which was better controlled with IV hydration. INR was noted to be supratherapeutic at around 18, she received a total of 7.5 mg of vitamin K in the hospital, INR is now subtherapeutic and she has been restarted on Coumadin. Urine culture eventually grew pansensitive Klebsiella, blood cultures are negative. Physical and occupational therapy evaluation completed, recommend home health services. Plan of care discussed with patient and her daughter, who are in agreement with discharge home with referral for home health services for INR checks, nursing, PT/OT. Discharge discussed with: patient, family, nurse - Time Spent with Patient Total time spent providing and/or coordinating discharge services: Greater than 30 minutes (40 min) - Discharge Medications Prescriptions: Cefdinir [Omnicef] 300 mg PO BID #14 capsule Home Medications: Digoxin [Lanoxin] 0.125 mg PO DAILY 08/05/17 [History] Ergocalciferol (VITAMIN D2) [Drisdol] 50,000 unit PO MOFR 08/05/17 [History] Lisinopril [Zestril] 10 mg PO DAILY 08/05/17 [History] Metoprolol Succinate [Toprol Xl] 100 mg PO DAILY 08/05/17 [History] Warfarin Sodium 2.5 mg PO MOTUTHFRSA 08/05/17 [History] Warfarin [Coumadin] 5 mg PO SUWE 08/05/17 [History] Cefdinir [Omnicef] 300 mg PO BID #14 capsule 08/08/17 [Rx] Docusate [Colace] 100 mg PO BID PRN capsule 08/08/17 [Rx] Allergies/Adverse Reactions: 3 Allergy/AdvReac Type Severity Reaction Status Date / Time No Known Allergies Allergy Verified 08/05/17 08:57 Date of admission: 08/05/17 09:13 Primary care physician: Cristi Esposito MD Consults: 08/06/17 08:33 Consult to Physical Therapy [CONS] Routine Comment: Evaluate, develop and implement POC Reason for Consult: Generalized weakness, falls Does patient have active BEDREST order?: No Is patient medically & hemodynamically stable?: Yes Patient assessed for mobility or mobilized this visit?: No Discharging clinician: Scarlet Dunlap Anticipated date of discharge: 08/08/17 - Constitutional Vitals: Temp Pulse Resp BP Pulse Ox 98.3 F 89 19 132/84 93 08/08/17 07:25 08/08/17 07:25 08/08/17 07:25 08/08/17 07:25 08/08/17 07:25 General appearance: Present: cachectic, A&O X 3, answers questions appropriately - Cardiovascular Cardiovascular exam: Present: irregular rhythm, +S1, +S2. Absent: diastolic murmur, gallop, rubs, systolic murmur - Patient Status Disposition: Home Health Service Condition: Fair Functional capacity at discharge: independent ambulation Overall status at discharge: patient is progressing back to baseline - Discharge Instructions Instructions: Urinary Tract Infection in Women (DC) Follow Up With: Cristi Esposito MD [Primary Care Provider] - (web request 08/08/2017) Additional Instructions: F/up with PCP in 1-2 weeks - Diet and Activity Activity: as per physical therapy Diet: low fat, low cholesterol, low salt diet - VTE Reasons for not Prescribing Prophylaxis: Medical contraindication
--- NOTE | 2017-08-08 10:50 | Physician Discharge Referral ---
Home Health/Hosp Referral Info Transfer to: Home Health Attending Provider: Scarlet Dunlap Provider in Charge Post Discharge: PCP - Diagnosis (1) Fall Priority: Primary Status: Acute (2) Supratherapeutic INR Priority: Primary Status: Acute (3) Acute renal failure Priority: Primary Status: Resolved (4) Hyperkalemia Priority: Primary Status: Resolved (5) UTI (urinary tract infection) Priority: Primary Status: Acute (6) Sepsis Priority: Primary Status: Acute (7) Atrial fibrillation Priority: Secondary Status: Chronic (8) Essential hypertension Priority: Secondary Status: Chronic - Respiratory Orders Smoking Cessation: Smoking cessation has been advised. For more information, call the [place] [employer] Quit Line at 4-241-HWJQ-NOW. - Diet/Nutrition Diet/Nutrition Orders: Cardiac - Activity Activity Orders: Ambulate - Services Needed Following services are medically necessary services: Nursing (INR monitoring, medication management), Physical Therapy, Occupational Therapy - Transfer Medications Prescriptions: Cefdinir [Omnicef] 300 mg PO BID #14 capsule Home Medications: Digoxin [Lanoxin] 0.125 mg PO DAILY 08/05/17 [History] Ergocalciferol (VITAMIN D2) [Drisdol] 50,000 unit PO MOFR 08/05/17 [History] Lisinopril [Zestril] 10 mg PO DAILY 08/05/17 [History] Metoprolol Succinate [Toprol Xl] 100 mg PO DAILY 08/05/17 [History] Warfarin Sodium 2.5 mg PO MOTUTHFRSA 08/05/17 [History] Warfarin [Coumadin] 5 mg PO SUWE 08/05/17 [History] Cefdinir [Omnicef] 300 mg PO BID #14 capsule 08/08/17 [Rx] Docusate [Colace] 100 mg PO BID PRN capsule 08/08/17 [Rx] Allergies/Adverse Reactions: 3 Allergy/AdvReac Type Severity Reaction Status Date / Time No Known Allergies Allergy Verified 08/05/17 08:57 Certification: Further, I certify that my clinical findings support that this patient is homebound (i.e. absences from home require considerable and taxing effort and are for medical reasons or rastafari services or infrequently or short duration when for other reasons) because: Homebound Reason: Patient requires assistance of a person or device to safely leave home, Leaving home requires considerable and taxing effort due to condition, Severity of cardiac or pulmonary status limits activity tolerance Attestation: My signature below is to certify that this patient is under my care and that I, or nurse practitioner, or a physician's application assistant working with me, has a face-to -face encounter with this patient.
[2017-08-08 11:05] VITALS: BP 119/74
[2017-08-08] MEDS ORDERED: *HR* Warfarin 2.5 MG TABLET PO ONE (18:00)
== END 2017-08-08 11:40 | disposition home health service (06) | DRG 871 ==
LOC: 2ANU 20:40 → EMEROO 20:40 → SUATTDRO 23:52 → 2ANU 08-05 01:05 → ICNU 08-05 05:21 → 2ANU 08-07 17:01
PROVIDERS: ADMIT Family Medicine; ATTEND Internal Medicine

== ENCOUNTER 2018-11-10 21:17 | Inpatient (IN) ==
[2018-11-10 21:47] LABS: Hematocrit 39.4 % (35.3-44.9); Hemoglobin 13.1 g/dL (11.5-15.4); Mean Corpuscular HGB Conc 33.2 g/dL (31.6-35.5); Mean Corpuscular Hemoglobin 29.1 pg (28.0-33.3); Mean Corpuscular Volume 87.6 fL (83.0-100.0); Mean Platelet Volume 10.1 fL (9.4-12.4); Platelet Count 264 K/mcL (140-400); Red Cell Distribution Width 14.1 % (11.5-14.5); White Blood Count 11.7 K/mcL (4.3-11.1)
[2018-11-10 22:07] LABS: BUN/Creatinine Ratio 23 (6-26); Blood Urea Nitrogen 22 mg/dL (8-23); Calcium 9.5 mg/dL (8.6-10.3); Carbon Dioxide 24 mEq/L (23-29); Chloride 102 mEq/L (98-107); Glucose 131 mg/dL (70-105); Osmolality,Calculated 287 (280-300); Sodium 136 mEq/L (136-145); eGFR For African Americans > 60 (> 60); eGFR For Non-African Americans 56 (> 60)
[2018-11-10 22:17] LABS: INR 2.2; Prothrombin Time 25.2 Seconds (9.4-12.1)
[2018-11-10] MEDS ORDERED: *HR* FentaNYL (PF) 100 MCG/2 ML VIAL IVP ONE (22:27)
[2018-11-11] MEDS ORDERED: *HR* FentaNYL (PF) 100 MCG/2 ML VIAL IVP ONE (00:26)
[2018-11-11] MEDS ORDERED: Naloxone 0.4 MG/ML INJ IVP PRN (02:13)
[2018-11-11 04:48] LABS: Hematocrit 36.7 % (35.3-44.9); Hemoglobin 12.3 g/dL (11.5-15.4); Mean Corpuscular HGB Conc 33.5 g/dL (31.6-35.5); Mean Corpuscular Hemoglobin 29.6 pg (28.0-33.3); Mean Corpuscular Volume 88.2 fL (83.0-100.0); Mean Platelet Volume 9.7 fL (9.4-12.4); Platelet Count 199 K/mcL (140-400); Red Blood Count 4.16 M/mcL (3.82-4.97); Red Cell Distribution Width 13.7 % (11.5-14.5)
[2018-11-11 05:00] LABS: INR 2.5; Prothrombin Time 28.2 Seconds (9.4-12.1)
[2018-11-11 05:09] LABS: BUN/Creatinine Ratio 25 (6-26); Blood Urea Nitrogen 20 mg/dL (8-23); Calcium 9.2 mg/dL (8.6-10.3); Carbon Dioxide 25 mEq/L (23-29); Chloride 104 mEq/L (98-107); Glucose 124 mg/dL (70-105); Osmolality,Calculated 286 (280-300); Sodium 136 mEq/L (136-145); eGFR For African Americans > 60 (> 60); eGFR For Non-African Americans > 60 (> 60)
[2018-11-11] MEDS: Metoprolol XL (24 HR) Succ 50 MG TAB.ER.24H PO SCH (08:33)
[2018-11-11] MEDS: *HR* Digoxin 0.125 MG TABLET PO SCH (08:33)
[2018-11-11 10:20] LABS: Bilirubin,Urine Negative (Negative); Blood,Urine Large (Negative); Clarity,Urine Turbid (Clear); Color,Urine Dark Yellow (Yellow); Glucose,Urine (UA) Normal (Normal); Ketones,Urine Negative (Negative); Leukocyte Esterase,Urine Large (Negative); Nitrite,Urine Positive (Negative); PH,Urine 5.5 pH Units (5.0-8.0); Protein,Urine 100 mg/dL (Neg-Trace); Specific Gravity,Urine 1.018 (1.010-1.025); Urobilinogen,Urine Normal (Normal)
[2018-11-11 10:23] LABS: Squamous Epithelial Cell,Urine Many per lpf (None-Few); WBC,Urine TNTC per hpf (0-3)
[2018-11-11 10:54] LABS: Yeast,Urine Few per hpf (None Seen)
[2018-11-11 10:55] LABS: Bacteria,Urine Moderate per hpf (None-Few)
[2018-11-12] MEDS: Metoprolol XL (24 HR) Succ 50 MG TAB.ER.24H PO SCH (08:41)
[2018-11-12] MEDS: *HR* Digoxin 0.125 MG TABLET PO SCH (08:42)
[2018-11-12] MEDS ORDERED: *HR* Warfarin 3 MG TABLET PO ONE (18:00)
[2018-11-12] MEDS ORDERED: Warfarin perPT PO PRN (18:00)
[2018-11-13 07:26] LABS: INR 1.6; Prothrombin Time 18.4 Seconds (9.4-12.1)
[2018-11-13] MEDS: Metoprolol XL (24 HR) Succ 50 MG TAB.ER.24H PO SCH (10:03)
[2018-11-13] MEDS: *HR* Digoxin 0.125 MG TABLET PO SCH (10:03)
[2018-11-13] MEDS ORDERED: *HR* Warfarin 3 MG TABLET PO ONE (18:00)
[2018-11-14] MEDS: Metoprolol XL (24 HR) Succ 50 MG TAB.ER.24H PO SCH (07:57)
[2018-11-14] MEDS: *HR* Digoxin 0.125 MG TABLET PO SCH (07:58)
[2018-11-14 10:52] LABS: INR 2.3; Prothrombin Time 26.4 Seconds (9.4-12.1)
[2018-11-14] MEDS ORDERED: FLU Vac QV 19-20 (6Month+)/PF 0.5 ML SYRINGE IM ONE (16:46)
[2018-11-14] MEDS ORDERED: *HR* Warfarin 1 MG TABLET PO ONE (18:00)
[2018-11-14 18:28] VITALS: BP 122/70
== END 2018-11-14 19:41 | DRG 536 ==
LOC: EMEROOARM 21:17 → 3NENU 21:17 → SUATTDRO 11-11 00:24 → 3NENU 11-11 01:04 → SUATTDRO 11-11 13:46
PROVIDERS: ADMIT Family Medicine; ATTEND Internal Medicine

== ENCOUNTER 2019-01-17 16:35 | Inpatient (IN) ==
[2019-01-17 18:01] LABS: Basophils % 0.8 %; Eosinophils % 0.8 %; Hematocrit 38.3 % (35.3-44.9); Hemoglobin 12.6 g/dL (11.5-15.4); Immature Granulocytes % 0.4 % (0-4); Lymphocytes # 1.1 K/mcL (0.6-4.6); Lymphocytes % 23.5 %; Mean Corpuscular HGB Conc 32.9 g/dL (31.6-35.5); Mean Corpuscular Hemoglobin 29.3 pg (28.0-33.3); Mean Corpuscular Volume 89.1 fL (83.0-100.0); Mean Platelet Volume 9.9 fL (9.4-12.4); Monocytes # 0.4 K/mcL (0.0-1.3); Monocytes % 9.2 %; Neutrophils # 3.1 K/mcL (1.6-8.9); Platelet Count 291 K/mcL (140-400); Red Cell Distribution Width 15.4 % (11.5-14.5); Segmented Neutrophils % 65.3 %; White Blood Count 4.8 K/mcL (4.3-11.1)
[2019-01-17 18:16] LABS: BUN/Creatinine Ratio 23 (6-26); Blood Urea Nitrogen 17 mg/dL (8-23); Calcium 9.5 mg/dL (8.6-10.3); Carbon Dioxide 24 mEq/L (23-29); Chloride 105 mEq/L (98-107); Glucose 95 mg/dL (70-105); Osmolality,Calculated 287 (280-300); Potassium 4.1 mEq/L (3.5-5.1); Sodium 138 mEq/L (136-145); eGFR For African Americans > 60 (> 60); eGFR For Non-African Americans > 60 (> 60)
[2019-01-17 18:22] LABS: Bilirubin,Urine Negative (Negative); Blood,Urine Moderate (Negative); Clarity,Urine Cloudy (Clear); Color,Urine Yellow (Yellow); Glucose,Urine (UA) Normal (Normal); Ketones,Urine Negative (Negative); Leukocyte Esterase,Urine Large (Negative); Nitrite,Urine Positive (Negative); Protein,Urine 100 mg/dL (Neg-Trace); Specific Gravity,Urine 1.019 (1.010-1.025); Urobilinogen,Urine Normal (Normal)
[2019-01-17 18:25] LABS: Bacteria,Urine Many per hpf (None-Few); Hyaline Casts,Urine None Seen per lpf (None-Few); RBC,Urine 15-30 per hpf (0-3); Squamous Epithelial Cell,Urine Few per lpf (None-Few); WBC,Urine TNTC per hpf (0-3)
[2019-01-17] MEDS ORDERED: cefTRIAXone 1,000 MG in Water for inj. (sterile) 10 ML IVP ONE (18:54)
[2019-01-17] MEDS: Furosemide 40 MG/4 ML VIAL IVP SCH (23:11)
[2019-01-17] MEDS: Acetaminophen 325 MG TABLET PO PRN (23:17)
[2019-01-18] MEDS: Acetaminophen 325 MG TABLET PO PRN (03:05)
[2019-01-18 06:12] LABS: INR 2.8; Prothrombin Time 32.3 Seconds (9.4-12.1)
[2019-01-18] MEDS: Metoprolol XL (24 HR) Succ 50 MG TAB.ER.24H PO SCH (08:41)
[2019-01-18] MEDS: *HR* Digoxin 0.125 MG TABLET PO SCH (08:41)
[2019-01-18] MEDS: Cholecalciferol (D-3) 1,000 UNIT (25MCG) TABLET PO SCH (08:41)
[2019-01-18] MEDS: cefTRIAXone 2,000 MG in Water for inj. (sterile) 20 ML IVPB SCH (08:42)
[2019-01-18] MEDS: Furosemide 40 MG/4 ML VIAL IVP SCH (08:42)
[2019-01-18] MEDS ORDERED: *HR* Warfarin 1 MG TABLET PO ONE (18:00)
[2019-01-18] MEDS ORDERED: Warfarin perPT PO PRN (18:00)
[2019-01-19 04:59] LABS: Basophils # 0.1 K/mcL (0.0-0.2); Basophils % 1.2 %; Eosinophils # 0.1 K/mcL (0.0-0.6); Eosinophils % 1.6 %; Hematocrit 36.7 % (35.3-44.9); Hemoglobin 12.1 g/dL (11.5-15.4); Immature Granulocytes % 0.4 % (0-4); Lymphocytes # 1.1 K/mcL (0.6-4.6); Mean Corpuscular Hemoglobin 29.2 pg (28.0-33.3); Mean Corpuscular Volume 88.4 fL (83.0-100.0); Monocytes # 0.4 K/mcL (0.0-1.3); Monocytes % 8.8 %; Neutrophils # 3.3 K/mcL (1.6-8.9); Platelet Count 270 K/mcL (140-400); Red Blood Count 4.15 M/mcL (3.82-4.97); Red Cell Distribution Width 15.3 % (11.5-14.5)
[2019-01-19 05:00] LABS: Prothrombin Time 34.7 Seconds (9.4-12.1)
[2019-01-19 05:21] LABS: BUN/Creatinine Ratio 23 (6-26); Blood Urea Nitrogen 21 mg/dL (8-23); Calcium 8.3 mg/dL (8.6-10.3); Carbon Dioxide 27 mEq/L (23-29); Chloride 101 mEq/L (98-107); Glucose 88 mg/dL (70-105); Osmolality,Calculated 296 (280-300); Potassium 3.6 mEq/L (3.5-5.1); Sodium 142 mEq/L (136-145); eGFR For African Americans > 60 (> 60); eGFR For Non-African Americans 58 (> 60)
[2019-01-19 06:38] VITALS: BP 135/80
[2019-01-19] MEDS ORDERED: Furosemide 40 MG TABLET PO SCH (09:00)
[2019-01-19] MEDS: cefTRIAXone 2,000 MG in Water for inj. (sterile) 20 ML IVPB SCH (09:19)
[2019-01-19] MEDS: Metoprolol XL (24 HR) Succ 50 MG TAB.ER.24H PO SCH (09:19)
[2019-01-19] MEDS: Cholecalciferol (D-3) 1,000 UNIT (25MCG) TABLET PO SCH (09:19)
[2019-01-19] MEDS: *HR* Digoxin 0.125 MG TABLET PO SCH (09:19)
[2019-01-19] MEDS ORDERED: *HR* Warfarin 1 MG TABLET PO ONE (18:00)
== END 2019-01-19 11:30 | disposition home health service (06) | DRG 603 ==
LOC: EMEROOARM 16:35 → 3ANU 16:35 → SUATTDRO 21:50 → 3ANU 22:15 → SUATTDRO 01-18 14:46
PROVIDERS: ADMIT Internal Medicine; ATTEND Internal Medicine